=== PATIENT | male | born 1980 | race Caucasian/White ===

== ENCOUNTER 2019-10-03 14:35 | Emergency (ER) | payer OTHER ==
[2019-10-03 14:40] VITALS: BP 159/114; PULSE 113; RESP 18; TEMP 97.7
[2019-10-03] MEDS ORDERED: AMOXICILLIN 875 MG TAB PO STA (14:49)
--- NOTE | 2019-10-03 14:54 | ED ---
ENT HPI - General Chief complaint: ENT Stated complaint: right ear pain Time Seen by Provider: 10/03/19 14:43 Source: patient Mode of arrival: ambulatory Limitations: no limitations - History of Present Illness Initial comments: Patient is a 39-year-old male presenting to the emergency department with a chief complaint of right ear pain. States he woke up this morning and felt an onset of right-sided ear pain. States there is no pain with traction of the ear. Does report some decreased hearing from the right ear. States that he used some peroxide but that only exacerbated the problems states that he took ibuprofen to alleviate some of his symptoms. States no previous ear conditions. - Related Data Previous Rx's Medication Instructions Recorded Amoxicillin 875 mg PO Q12HR #20 tablet 10/03/19 Allergies Allergy/AdvReac Type Severity Reaction Status Date / Time No Known Allergies Allergy Verified 10/03/19 14:41 Review of Systems ROS Statement: Those systems with pertinent positive or pertinent negative responses have been documented in the HPI. ROS Other: All systems not noted in ROS Statement are negative. Past Medical History Past Medical History: No Reported History History of Any Multi-Drug Resistant Organisms: None Reported Past Surgical History: No Surgical Hx Reported Past Psychological History: No Psychological Hx Reported Smoking Status: Current every day smoker Past Alcohol Use History: Occasional General Exam Limitations: no limitations General appearance: alert, in no apparent distress Head exam: Present: atraumatic, normocephalic, normal inspection Eye exam: Present: normal appearance Pupils: Present: normal accommodation ENT exam: Present: normal exam, normal oropharynx, mucous membranes moist, normal external ear exam (No signs of otitis externa.). Absent: TM's normal bilaterally (Erythematous, bulging right-sided tympanic membrane. No perforation.) Neck exam: Present: normal inspection, full ROM Respiratory exam: Present: normal lung sounds bilaterally Cardiovascular Exam: Present: regular rate, normal rhythm, normal heart sounds Extremities exam: Present: normal inspection, full ROM Back exam: Present: normal inspection, full ROM Neurological exam: Present: alert, oriented X3 Psychiatric exam: Present: normal affect, normal mood Skin exam: Present: warm, dry, intact, normal color Course Vital Signs 10/03/19 14:37 Temperature 97.7 F Pulse Rate 113 H Respiratory 18 Rate Blood Pressure 159/114 O2 Sat by Pulse 99 Oximetry Medical Decision Making - Medical Decision Making patient 39-year-old male presents emergency Department with a chief complaint right ear pain. Patient started this morning. On exam patient does have a bulging, erythematous right tympanic membrane. No signs of otitis externa. No perforation of the tympanic membrane. No signs of mastoiditis. Patient given amoxicillin the ED. Will be discharged with 10 day course of amoxicillin. Return parameters were thoroughly discussed with patient was understanding and agreeable. Case discussed with physician. Disposition Clinical Impression: Otitis media, right Disposition: HOME SELF-CARE Condition: Stable Additional Instructions: Take prescribed medication as directed. Follow-up primary care. Return to emergency department if symptoms worsen. Prescriptions: Amoxicillin 875 mg PO Q12HR #20 tablet Is patient prescribed a controlled substance at d/c from ED?: No Referrals: None,Stated [Primary Care Provider] - 1-2 days Time of Disposition: 14:54
== END 2019-10-03 15:24 | disposition home or self-care (01) ==
LOC: EC 14:35
DX: H66.91 Otitis media, unspecified, right ear (principal); F17.200 Nicotine dependence, unspecified, uncomplicated
CPT/HCPCS: 99282

== ENCOUNTER 2020-05-20 20:27 | Emergency (ER) | payer OTHER ==
[2020-05-20 20:38] VITALS: BP 148/97
--- NOTE | 2020-05-20 21:07 | ED ---
URI HPI - General Chief Complaint: Upper Respiratory Infection Stated Complaint: Upper Resp/Allergies Time Seen by Provider: 05/20/20 20:47 Source: patient, RN notes reviewed, old records reviewed Mode of arrival: ambulatory Limitations: no limitations - History of Present Illness Initial Comments: This is a 32-year-old male DF patient Dese for evaluation regards to cough and congestion runny nose not feeling well. Denying fever no chest pain does show some wheezing and tightness. History of occasional smoking he believes she has history of asthma severe ALLERGIES. Otherwise no travel history no fevers no sick contacts MD Complaint: cough, nasal congestion -: days(s) Severity: moderate Severity scale (1-10): 5 Consistency: constant, intermittent Improves With: rest Worsens With: deep breaths Associated Symptoms: rhinorrhea, nasal congestion, sore throat, cough, shortness of breath Treatments Prior to Arrival: none - Related Data Previous Rx's Medication Instructions Recorded Amoxicillin 875 mg PO Q12HR #20 tablet 10/03/19 Albuterol Sulfate [Proair Hfa] 1 - 2 puff INHALATION Q4H PRN #1 05/20/20 inhaler Azithromycin [Zithromax Z-pack (6 0 mg PO DIRECTED #1 pack 05/20/20 tabs)] predniSONE 50 mg PO DAILY #5 tab 05/20/20 Allergies Allergy/AdvReac Type Severity Reaction Status Date / Time No Known Allergies Allergy Verified 05/20/20 20:38 Review of Systems ROS Statement: Those systems with pertinent positive or pertinent negative responses have been documented in the HPI. ROS Other: All systems not noted in ROS Statement are negative. Past Medical History Past Medical History: Pneumonia History of Any Multi-Drug Resistant Organisms: None Reported Past Surgical History: Orthopedic Surgery Past Psychological History: No Psychological Hx Reported Smoking Status: Current every day smoker Past Alcohol Use History: Occasional Past Drug Use History: None Reported General Exam Limitations: no limitations General appearance: alert, in no apparent distress Head exam: Present: atraumatic, normocephalic, normal inspection Eye exam: Present: normal appearance, PERRL, EOMI. Absent: scleral icterus, conjunctival injection, periorbital swelling ENT exam: Present: normal exam, mucous membranes moist Neck exam: Present: normal inspection. Absent: tenderness, meningismus, lymphadenopathy Respiratory exam: Present: wheezes. Absent: respiratory distress, rales, rhonchi, stridor Cardiovascular Exam: Present: normal rhythm, tachycardia, normal heart sounds. Absent: systolic murmur, diastolic murmur, rubs, gallop, clicks GI/Abdominal exam: Present: soft, normal bowel sounds. Absent: distended, tenderness, guarding, rebound, rigid Extremities exam: Present: normal inspection, full ROM, normal capillary refill. Absent: tenderness, pedal edema, joint swelling, calf tenderness Back exam: Present: normal inspection Neurological exam: Present: alert, oriented X3, CN II-XII intact Psychiatric exam: Present: normal affect, normal mood Skin exam: Present: warm, dry, intact, normal color. Absent: rash Course Vital Signs 05/20/20 05/20/20 05/20/20 20:34 21:04 21:47 Temperature 98.9 F Pulse Rate 110 H 74 Respiratory 22 20 18 Rate Blood Pressure 148/97 O2 Sat by Pulse 96 Oximetry 05/20/20 05/20/20 21:52 22:35 Temperature 98.1 F Pulse Rate 75 Respiratory 18 Rate Blood Pressure O2 Sat by Pulse Oximetry - Reevaluation(s) Reevaluation #1: Medical record reviewed Patient no acute distress feels better after breathing treatment Findings here in the ER Patient, questions answered Patient feels good for discharge Medical Decision Making - Medical Decision Making 40 male DF for URI symptoms cough and shortness of breath bronchitis, patient be treated for bronchitis and's test for coronavirus - Radiology Data Radiology results: report reviewed (Chest x-rays negative for acute disease), image reviewed Disposition Clinical Impression: Upper respiratory tract infection Disposition: HOME SELF-CARE Condition: Good Instructions (If sedation given, give patient instructions): Upper Respiratory Infection (ED) Prescriptions: predniSONE 50 mg PO DAILY #5 tab Albuterol Sulfate [Proair Hfa] 1 - 2 puff INHALATION Q4H PRN #1 inhaler PRN Reason: Shortness Of Breath Azithromycin [Zithromax Z-pack (6 tabs)] 0 mg PO DIRECTED #1 pack Is patient prescribed a controlled substance at d/c from ED?: No Referrals: None,Stated [Primary Care Provider] - 1-2 days
[2020-05-20] MEDS ORDERED: dexAMETHasone 4 MG TAB PO STA (21:08)
[2020-05-20] MEDS ORDERED: IPRATROPIUM-ALBUTEROL 3 ML NEB INHALATION STA (21:08)
--- NOTE | 2020-05-20 21:23 | XR ---
EXAMINATION TYPE: XR chest 2V DATE OF EXAM: 05/20/2020 CLINICAL HISTORY: Shortness of breath TECHNIQUE: Frontal and lateral views of the chest are obtained. COMPARISON: None FINDINGS: The cardiomediastinal silhouette is within normal limits for size. Pulmonary vasculature i s normal. There is no focal air space opacity, pleural effusion, or pneumothorax seen. The osseous st ructures are intact. IMPRESSION: No acute cardiopulmonary process.
[2020-05-20 21:48] VITALS: RESP 18
[2020-05-20 21:54] VITALS: PULSE 75
[2020-05-20] MEDS ORDERED: AZITHROMYCIN 500 MG TAB PO STA (22:09)
[2020-05-20 22:36] VITALS: TEMP 98.1
== END 2020-05-20 22:37 | disposition home or self-care (01) ==
LOC: EC 20:27
DX: J06.9 Acute upper respiratory infection, unspecified (principal); J40 Bronchitis, not specified as acute or chronic; F17.200 Nicotine dependence, unspecified, uncomplicated
CPT/HCPCS: 94640; 71046; 99284; J8540

== ENCOUNTER 2025-02-16 19:19 | Emergency (ER) | payer BC, OTHER ==
[2025-02-16 19:26] VITALS: PULSE 127; RESP 17
[2025-02-16] MEDS: DIPH,PERTUS(ACELL)TETVAC-LF 0.5 ML VIAL IM ONE (20:00)
[2025-02-16] MEDS: LIDOCAINE 1% INJ 10MG/ML (20 ML MDV) SQ ONE (20:02)
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
[2025-02-16 21:07] VITALS: BP 140/90; TEMP 98.3
== END 2025-02-16 21:07 | disposition home or self-care (01) ==
LOC: EC 19:19
DX: S51.012A Laceration without foreign body of left elbow, initial encounter (principal); F17.200 Nicotine dependence, unspecified, uncomplicated; Z23 Encounter for immunization; W61.39XA Other contact with chicken, initial encounter
CPT/HCPCS: 90715; 99282; 90471; 12001; J2003

== ENCOUNTER 2025-02-23 09:23 | Emergency (ER) | payer BC, OTHER ==
[2025-02-23 09:28] VITALS: RESP 18; TEMP 97.7
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
[2025-02-23 10:02] VITALS: BP 128/7; PULSE 78
== END 2025-02-23 10:02 | disposition home or self-care (01) ==
LOC: EC 09:23
DX: T81.49XA Infection following a procedure, other surgical site, initial encounter (principal); F17.200 Nicotine dependence, unspecified, uncomplicated
CPT/HCPCS: 87070; 87077; 87186; 87205; 99283